=== PATIENT | female | born 1965 | race Caucasian/White ===

== ENCOUNTER → 2024-08-25 | Outpatient (CLI) | payer OTHER ==
[~2024-08-25] MED LIST: BUDE3CAP10 PO; CHOL378P14 PO; ESCI-8 PO; FAMO40TA7 PO; MULT-1367 PO; SUCR1TAB2 PO
--- NOTE | 2024-08-25 11:02 | HMCIMG ---
THORACIC SPINE 3VWS REASON: UPPER BACK PAIN OF LEFT SIDE COMPARISON: None. TECHNIQUE: 3 images were obtained. FINDINGS: There are normal appearing vertebral bodies. Interspace heights are well preserved. There are no visible fractures. Soft tissues appear unremarkable. IMPRESSION: 1. Normal views of the thoracic spine.
== END | disposition home or self-care (01) ==
LOC: RAH 08:59
PROVIDERS: ATTEND Physician Assistant
DX: M54.9 Dorsalgia, unspecified (principal)
CPT/HCPCS: 72072